=== PATIENT | male | born 1965 | race Caucasian/White ===

== ENCOUNTER 2021-10-01 06:28 | Emergency (ER) | payer MEDICAID, SELFPAY ==
--- NOTE | ~2021-10-01 | CT_ITS ---
EXAMINATION: CT ABDOMEN AND PELVIS WITH CONTRAST CLINICAL INFORMATION: Abdominal pain. History of pancreatic pseudocyst. COMPARISON: Abdominal MRI 02/02/[address] abdomen pelvis 10/03/2020 TECHNIQUE: Multidetector volumetric images were obtained from the superior aspect of the liver through the pubic symphysis following administration 85 mL of Omnipaque 350 intravenous contrast. Sagittal and coronal reformatted images were obtained on the technologist's workstation. This CT examination was performed using dose optimization techniques as appropriate, variously including the following: *Automated exposure control *Adjustment of mA and/or kV according to patient size (this includes techniques or standardized protocols for targeted exams where dose is matched to indication/reason for exam; i.e. extremities or head) *Use of iterative reconstruction technique DLP: 455 mGy-cm FINDINGS: Visualized lung bases demonstrate mild dependent atelectasis. The liver demonstrates normal size, contour and attenuation. The gallbladder is surgically absent. The common bile duct is dilated measuring up to 8 mm. Interval increase in size of now approximately 4 x 3.4 cm cystic lesion within the pancreatic head (previously 2.7 x 2.2 cm). The pancreatic body is unremarkable in appearance demonstrating relatively homogeneous enhancement. There is atrophy of the pancreatic tail. There is no definitive dilatation of the pancreatic duct. The spleen is normal in size. A medial splenule is noted. The adrenal glands are unremarkable. Symmetrically enhancing kidneys. There is a nonobstructing 5 mm calculus present within the lower pole the left kidney. There is no hydronephrosis of either kidney. There is a 1.4 cm cyst within the upper pole of the right kidney and a 3.6 cm cyst within the lower pole of the left kidney. Normal caliber loops of small and large bowel. Mild colonic diverticulosis without CT evidence to suggest active diverticulitis. Normal appendix. Normal caliber abdominal aorta demonstrating mild to moderate atherosclerotic disease. No retroperitoneal lymphadenopathy. The bladder is normal in appearance. The prostate gland is mildly enlarged. Small fat-containing bilateral inguinal hernias. No gross free pelvic fluid. No inguinal lymphadenopathy. Mild to moderate degenerative changes of the spine. Stable subcentimeter sclerotic focus within the right superior pubic ramus is nonspecific but most suggestive of a bone island. CT/CT abdomen pelvis w con IMPRESSION: 1. Interval increase in size of now approximately 4 cm cystic lesion within the pancreatic head (previously 2.7 cm). Clinical correlation recommended. 2. 5 mm nonobstructing left renal calculus. 3. Bilateral renal cysts. 4. Mild colonic diverticulosis. Fleischner guidelines were followed.
[2021-10-01 06:43] VITALS: BP 177/116; PULSE 76; RESP 16; TEMP 36.9; O2SAT 98; BMI 25.8
--- NOTE | 2021-10-01 06:44 | ED.ABDPAIN ---
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 He notes he thinks his pancreatitis was due to triglycerides but takes no medicines for it, then was told to cut down his drinking, and also had his GB removed. He cannot give me a straight answer for why he has pancreatitis. He notes that he takes tylenol at home when he has pain. He lives in [facility]. He ate a large heavy meal last night and is wondering if this is what caused his pain MD elicited complaint: abdominal pain Pertinent past history: other (pancreatitis) Onset (ago): day(s) (last night) Pain Consistency: constant Location: epigastric Severity: severe Quality: stabbing Radiation: none Migration to: no migration Exacerbating factors: eating and movement Relieving factors: nothing Context: history of similar episodes Associated symptoms: nausea Related Data Previous Rx's Medication Instructions Recorded morphine 15 mg immediate release 15 mg PO Q6H PRN 3 Days #15 tab 10/01/21 tablet ondansetron 4 mg disintegrating 4 mg PO Q8H PRN #20 tab 10/01/21 tablet Allergies Allergy/AdvReac Type Severity Reaction Status Date / Time Gadolinium-Containing Allergy Unknown Unknown Verified 10/01/21 06:53 Contrast Medi Review of Systems Review of Systems Constitutional : No Weight loss, No Fever, No Chills ENT/Mouth : No sore throat, No Rhinorrhea Eyes: No Swelling, No Redness Cardiovascular : No Chest Pain, No SOB, NoEdema Respiratory : No Cough, No Sputum, No Wheezing Gastrointestinal : Positive Nausea, no Vomiting, no Diarrhea, positive abdominal Pain, No Hematochezia, No Melena Genitourinary : No Dysuria, No Urinary Frequency, No Hematuria, No Urgency Musculoskeletal : No joint pain, No Myalgias, No Joint Swelling Skin : No Skin Lesions, No rash Neuro : No Weakness, No Numbness, No Dizziness, No Headache Psych : No Anxiety/Panic, No Depression Heme/Lymph: No Bruising, No Lymphadenopathy Endocrine : No Polyuria, No Polydipsia All other systems reviewed and are negative. [facility] Past Medical History Attestation statement: The following information was validated with the patient. Medical History HTN (hypertension) Pancreatic pseudocyst Pancreatitis Surgical History S/P cholecystectomy Social History Social History (Updated 10/01/21 @ 07:05 by Shelbi Loving DO) Alcohol intake: current Alcohol intake frequency: a few times a week Patient Tobacco Use Status: Never used Tobacco Use of substances other than those prescribed or required for medical reasons: No Advance Directives: No Advance Directives Information Provided: No Physical Exam ED Vital Signs: Vital Signs - 24 hr 10/01/21 06:43 10/01/21 07:33 Temperature 98.5 F 97.7 F Pulse Rate 76 66 Respiratory Rate 16 19 Blood Pressure 177/116 H 169/100 H Pulse Oximetry 98 97 BMI result Body Mass Index 25.8 Appearance: Alert. Oriented X3. No acute distress. Eyes: Pupils equal, round and reactive to light. ENT: Pharynx normal. Neck: Normal inspection. Neck supple. CVS: Normal heart rate and rhythm. Pulses normal. Respiratory: No respiratory distress. Breath sounds normal. Abdomen: Soft and moderate ttp in epigastric area but no rebound or guarding, moves well in bed. Skin: Skin warm and dry. Normal skin color. Normal skin turgor. Extremities: No lower extremity edema. No calf ttp Neuro: Oriented X 3. No motor deficit. No sensory deficit. Course Course Course Narrative: 2.7cm in August cyst - has appointment with GI no n/v can be managed as outpatient can follow up with his GI doctor patient states he wants to go home, asking for his IV out at this time wants to follow up with his doctor MDM - Abdominal Pain MDM Narrative Medical decision making narrative: 56 yo male with hx of HTN, pancreatitis, pseudocysts here with c/o abdominal pain after eating a large meal last night - abdomen is relatively benign on exam no rebound or guarding, he moves well on the bed. Will obtain labs, hydrate treat with IV morphine and reasses. He is not having vomiting at this time. Has appointment with GI in October. Dispo per results and improvement. Lab Data Result diagrams: 10/01/21 07:07 10/01/21 07:07 Labs: Lab Results 10/01/21 10/01/21 10/01/21 Range/Units 07:07 07:07 07:07 WBC 7.0 (4.8-10.8) X10*3/uL RBC 3.93 L (4.60-5.80) X10*6/uL Hgb 12.8 L (14.0-18.0) g/dl Hct 36.9 L (42.0-52.0) % MCV 93.9 (80.0-98.0) fL MCH 32.6 (27.0-33.0) pg MCHC 34.7 (31.0-36.0) g/dl RDW 11.2 (11.0-16.0) % Plt Count 216 (160-400) X10*3/uL MPV 9.9 (9.4-12.4) fL Immature Gran % (Auto) 0.4 (0.0-0.4) % Neut % (Auto) 67.9 (45-73) % Lymph % (Auto) 17.9 L (20-40) % [place] % (Auto) 10.5 (2-11) % Eos % (Auto) 2.7 (0-4) % Baso % (Auto) 0.6 (0-2) % Lymph # (Auto) 1.3 (1.2-4.9) X10*3/uL [place] # (Auto) 0.7 (0.1-1.2) X10*3/uL Eos # (Auto) 0.2 (0.0-0.4) X10*3/uL Baso # (Auto) 0.0 (0.0-0.2) X10*3/uL Abs Immat Gran (auto) 0.03 (0.00-0.03) X10*3/uL Absolute Neuts (auto) 4.7 (2.0-8.3) x10*3/uL Absolute Nucleated RBC 0.000 (0.0-0.012) X10*3/uL Nucleated RBC % (auto) 0.0 (0.0-0.2) /100WBC Sodium 137 (135-145) mmol/L Potassium 4.5 (3.3-5.1) mmol/L Chloride 103 (96-108) mmol/L Carbon Dioxide 23 (22-29) mmol/L Anion Gap 16 (12-20) BUN 33 H (9-16) mg/dL Creatinine 1.17 (0.5-1.4) mg/dL Estim Creat Clear Calc 66.6 Estimated GFR > 60 Random Glucose 162 H (60-115) mg/dL Calcium 9.2 (8.4-10.2) mg/dL Magnesium 1.7 (1.6-2.6) mg/dL Total Bilirubin 0.5 (0.0-1.0) mg/dL Direct Bilirubin 0.2 (0.0-0.5) mg/dL AST 19 (5-37) U/L ALT 20 (0-40) U/L Alkaline Phosphatase 58 (39-117) U/L Lactate Dehydrogenase 228 (118-273) U/L Total Protein 6.9 (6.5-8.0) g/dL Albumin 4.3 (3.5-5.0) g/dL Amylase 123 H (28-100) U/L Lipase 309 H (8-78) U/L Ethyl Alcohol < 10 mg/dL Discharge Plan Discharge Clinical Impression: Pancreatic pseudocyst/cyst Abdominal pain Qualifiers: Abdominal location: epigastric Qualified Code(s): R10.13 - Epigastric pain Acute pancreatitis Qualifiers: Pancreatitis type: unspecified pancreatitis type Acute pancreatitis complication: no infection or necrosis Qualified Code(s): K85.90 - Acute pancreatitis without necrosis or infection, unspecified Patient Disposition: Home, Self-Care Instructions: Pancreatitis (ED), Abdominal Pain (ED), Pancreatic Pseudocyst (DC) Additional Instructions: return to ED for any worsening symptoms or concerns CALL YOUR GI DOCTOR TODAY OR TOMORROW CT/CT abdomen pelvis w con IMPRESSION: 1.? Interval increase in size of now approximately 4 cm cystic lesion within the pancreatic head (previously 2.7 cm). Clinical correlation recommended. 2.? 5 mm nonobstructing left renal calculus. 3.? Bilateral renal cysts. 4.? Mild colonic diverticulosis.? ? Fleischner guidelines were followed. Prescriptions: New morphine 15 mg tablet 15 mg PO Q6H PRN (Reason: pain) 3 Days Qty: 15 0RF ondansetron 4 mg tablet,disintegrating 4 mg PO Q8H PRN (Reason: nausea and vomiting) Qty: 20 0RF Stand Alone Forms: Work/School Release
--- NOTE | 2021-10-01 06:52 | PC.NURSE ---
Report given to Betsy
[2021-10-01] MEDS: 0.9 % Sodium Chloride 1,000 ML 999 ML IVCONT (07:09)
[2021-10-01] MEDS: Morphine Sulfate 10 MG/ML CARTRIDGE 6 MG IVPUSH (07:10)
[2021-10-01] MEDS: ondansetron HCL 4 MG/2 ML VIAL IVPUSH (07:10)
[2021-10-01 07:20] LABS: MANUAL DIFF FLAG NO
--- NOTE | 2021-10-01 07:20 | PC.NURSE ---
Patient arrives complaining of worsening upper abdominal pain. Reports history of pancreatitis and is concerned of a flare up. Patient is alert and oriented. Respirations regular and even. Skin PWD. Denies nausea/vomiting/diarrhea at this time. IV established and labs drawn. Patient medicated with Zofran and Morphine, hung NS 1L. Patient reports improvement with the Morphine. Awaiting labs at this time
[2021-10-01 07:25] LABS: Basophils Percent Auto 0.6 % (0-2); Eosinophils Absolute Auto 0.2 X10*3/uL (0.0-0.4); Eosinophils Percent Auto 2.7 % (0-4); Hematocrit 36.9 % (42.0-52.0); Hemoglobin 12.8 g/dl (14.0-18.0); Imm Gran Abs Auto 0.03 X10*3/uL (0.00-0.03); Imm Gran Pct Auto 0.4 % (0.0-0.4); Lymphocytes Absolute Auto 1.3 X10*3/uL (1.2-4.9); Lymphocytes Percent Auto 17.9 % (20-40); Mean Corpuscular HGB Conc 34.7 g/dl (31.0-36.0); Mean Corpuscular Hemoglobin 32.6 pg (27.0-33.0); Mean Corpuscular Volume 93.9 fL (80.0-98.0); Mean Platelet Volume 9.9 fL (9.4-12.4); Monocytes Absolute Auto 0.7 X10*3/uL (0.1-1.2); Monocytes Percent Auto 10.5 % (2-11); Neutrophils Absolute Auto 4.7 x10*3/uL (2.0-8.3); Neutrophils Percent Auto 67.9 % (45-73); Platelet Count 216 X10*3/uL (160-400); Red Blood Count 3.93 X10*6/uL (4.60-5.80); Red Cell Distribution Width 11.2 % (11.0-16.0)
[2021-10-01 07:33] VITALS: BP 169/100; PULSE 66; RESP 19; TEMP 36.5; O2SAT 97
[2021-10-01 07:40] LABS: Ethanol < 10 mg/dL
[2021-10-01 07:44] LABS: Alanine Aminotransferase 20 U/L (0-40); Albumin Level 4.3 g/dL (3.5-5.0); Alkaline Phosphatase 58 U/L (39-117); Amylase 123 U/L (28-100); Anion Gap 16 (12-20); Aspartate Amino Transferase 19 U/L (5-37); Bilirubin Direct 0.2 mg/dL (0.0-0.5); Bilirubin Total 0.5 mg/dL (0.0-1.0); Blood Urea Nitrogen 33 mg/dL (9-16); Calcium 9.2 mg/dL (8.4-10.2); Carbon Dioxide 23 mmol/L (22-29); Chloride 103 mmol/L (96-108); Creatinine Clr Calc Pharmacy 66.6; Estimated Glomerular Filt Rate > 60; Glucose Random 162 mg/dL (60-115); Lactate Dehydrogenase 228 U/L (118-273); Lipase 309 U/L (8-78); Magnesium 1.7 mg/dL (1.6-2.6); Potassium 4.5 mmol/L (3.3-5.1); Sodium 137 mmol/L (135-145); Total Protein 6.9 g/dL (6.5-8.0)
[2021-10-01] MEDS: iohexoL 350 MG/ML 100 ML INFUS..BTL IV (08:29)
[2021-10-01 09:19] VITALS: BP 180/108; PULSE 71; RESP 17; O2SAT 99
== END 2021-10-01 09:33 | disposition home or self-care (01) ==
PROVIDERS: Emergency Provider Emergency Medicine
DX: K85.90 Acute pancreatitis without necrosis or infection, unspecified (principal); K86.3 Pseudocyst of pancreas; I10 Essential (primary) hypertension
CPT/HCPCS: 36415; 74177; 80048; 80076; 82077; 82150; 83615; 83690; 83735; 85025; 96361; 96374; 96375; 99284; J2270; J2405; Q9967

== ENCOUNTER 2021-10-17 05:32 | Emergency (ER) | payer MEDICAID, SELFPAY ==
[2021-10-17 05:42] VITALS: BP 175/115; PULSE 83; RESP 16; TEMP 36.8; O2SAT 98; BMI 25.8
[2021-10-17 05:55] LABS: MANUAL DIFF FLAG NO
[2021-10-17 05:56] LABS: Basophils Percent Auto 0.4 % (0-2); Eosinophils Absolute Auto 0.3 X10*3/uL (0.0-0.4); Eosinophils Percent Auto 3.2 % (0-4); Hematocrit 38.8 % (42.0-52.0); Imm Gran Abs Auto 0.04 X10*3/uL (0.00-0.03); Imm Gran Pct Auto 0.5 % (0.0-0.4); Lymphocytes Absolute Auto 1.9 X10*3/uL (1.2-4.9); Lymphocytes Percent Auto 22.1 % (20-40); Mean Corpuscular HGB Conc 33.5 g/dl (31.0-36.0); Mean Corpuscular Hemoglobin 31.6 pg (27.0-33.0); Mean Corpuscular Volume 94.2 fL (80.0-98.0); Mean Platelet Volume 9.8 fL (9.4-12.4); Monocytes Absolute Auto 0.9 X10*3/uL (0.1-1.2); Neutrophils Absolute Auto 5.4 x10*3/uL (2.0-8.3); Neutrophils Percent Auto 62.8 % (45-73); Platelet Count 215 X10*3/uL (160-400); Red Blood Count 4.12 X10*6/uL (4.60-5.80); Red Cell Distribution Width 11.8 % (11.0-16.0); White Blood Count 8.6 X10*3/uL (4.8-10.8)
[2021-10-17 06:16] LABS: Appearance Urine CLEAR; Color Urine YELLOW; Glucose Urine UA NEG (NEG); Leukocyte Esterase Urine NEG (NEG); Nitrite Urine NEG (NEG); PH 5.5 (5.0-8.0); Specific Gravity - Urine >= 1.030 (1.005-1.025); UACC Culture Trigger NO; Urine Blood NEG (NEG); Urine Ketones NEG (NEG); Urine Protein 2+ MG/DL (NEG-TRACE)
[2021-10-17 06:17] LABS: Ethanol < 10 mg/dL
[2021-10-17 06:24] LABS: Calcium Phosphate Crystals Ur TRACE /LPF; Hyaline Casts Urine 0-2 /LPF; Mucus Urine TRACE /LPF; RBC Urine 0 /HPF (0); Squamous Epithelial Cell Urine TRACE /LPF; WBC Urine 0-2 /HPF (0-4)
[2021-10-17 06:35] LABS: Alanine Aminotransferase 18 U/L (0-40); Albumin Level 4.5 g/dL (3.5-5.0); Alkaline Phosphatase 55 U/L (39-117); Anion Gap 16 (12-20); Aspartate Amino Transferase 18 U/L (5-37); Bilirubin Total 0.5 mg/dL (0.0-1.0); Blood Urea Nitrogen 31 mg/dL (9-16); Calcium 9.7 mg/dL (8.4-10.2); Carbon Dioxide 21 mmol/L (22-29); Chloride 105 mmol/L (96-108); Creatinine Clr Calc Pharmacy 82.1; Estimated Glomerular Filt Rate > 60; Glucose Random 157 mg/dL (60-115); Potassium 5.1 mmol/L (3.3-5.1); Sodium 137 mmol/L (135-145); Total Protein 7.4 g/dL (6.5-8.0)
--- NOTE | 2021-10-17 06:36 | ED_ITS ---
HPI - Abdominal Pain General Chief Complaint: Abdominal Pain Stated Complaint: abd pain Time Seen by Provider: 10/17/21 06:34 Source: patient and old records reviewed Mode of arrival: ambulatory Limitations: no limitations History of Present Illness HPI narrative: just seen 10/01 in our ED Rx morphine for home 10/14 at [facility] pancreatic pseudocyst was removed stated he did well not sent home with medications no n/v/d or fevers then developed pain last night MD elicited complaint: abdominal pain Pertinent past history: other (pancreatitis) Onset (ago): day(s) (yesterday ) Pain Consistency: constant Location: epigastric Severity: moderate Quality: stabbing Radiation: none Migration to: no migration Exacerbating factors: nothing Relieving factors: nothing Context: history of similar episodes Associated symptoms: denies other symptoms Related Data Previous Rx's Medication Instructions Recorded morphine 15 mg immediate release 15 mg PO Q6H PRN 3 Days #15 tab 10/01/21 tablet ondansetron 4 mg disintegrating 4 mg PO Q8H PRN #20 tab 10/01/21 tablet Allergies Allergy/AdvReac Type Severity Reaction Status Date / Time Gadolinium-Containing Allergy Unknown Unknown Verified 10/01/21 06:53 Contrast Medi Review of Systems Review of Systems Constitutional : No Weight loss, No Fever, No Chills ENT/Mouth : No sore throat, No Rhinorrhea Eyes: No Swelling, No Redness Cardiovascular : No Chest Pain, No SOB, NoEdema Respiratory : No Cough, No Sputum, No Wheezing Gastrointestinal : no Nausea, no Vomiting, no Diarrhea, positive abdominal Pain, No Hematochezia, No Melena Genitourinary : No Dysuria, No Urinary Frequency, No Hematuria, No Urgency Musculoskeletal : No joint pain, No Myalgias, No Joint Swelling Skin : No Skin Lesions, No rash Neuro : No Weakness, No Numbness, No Dizziness, No Headache Psych : No Anxiety/Panic, No Depression Heme/Lymph: No Bruising, No Lymphadenopathy Endocrine : No Polyuria, No Polydipsia All other systems reviewed and are negative. [facility] Past Medical History Attestation statement: The following information was validated with the patient. Medical History HTN (hypertension) Pancreatic pseudocyst Pancreatitis Surgical History S/P cholecystectomy Social History Social History Alcohol intake: current Alcohol intake frequency: a few times a week Patient Tobacco Use Status: Never used Tobacco Advance Directives: No Physical Exam ED Vital Signs: Vital Signs - 24 hr 10/17/21 05:42 10/17/21 07:27 Temperature 98.3 F Pulse Rate 83 86 Respiratory Rate 16 14 Blood Pressure 175/115 H 202/126 H Pulse Oximetry 98 96 BMI result Body Mass Index 25.8 Appearance: Alert. Oriented X3. No acute distress. Eyes: Pupils equal, round and reactive to light. ENT: Pharynx normal. Neck: Normal inspection. Neck supple. CVS: Normal heart rate and rhythm. Pulses normal. Respiratory: No respiratory distress. Breath sounds normal. Abdomen: Soft and nontender. Does not grimace to palpation Skin: Skin warm and dry. Normal skin color. Normal skin turgor. Extremities: No lower extremity edema. No calf ttp Neuro: Oriented X 3. No motor deficit. No sensory deficit. Course Course Course Narrative: lipase level elevated - CT scan to evaluate ordered patient eloped MDM - Abdominal Pain MDM Narrative Medical decision making narrative: 56 yo male with hx of HTN and chronic pancreatitis states he just had cyst re moved on 10/14 at [facility] - now has abdominal pain but no n/v/d no fevers normal BMs at this time oral medications for pain ordered as abdominal exam is benign and he is not vomiting. labs and lipase level ordered. Lab Data Result diagrams: 10/17/21 05:50 10/17/21 05:50 Labs: Lab Results 10/17/21 10/17/21 10/17/21 Range/Units 05:50 05:50 05:50 WBC 8.6 (4.8-10.8) X10*3/uL RBC 4.12 L (4.60-5.80) X10*6/uL Hgb 13.0 L (14.0-18.0) g/dl Hct 38.8 L (42.0-52.0) % MCV 94.2 (80.0-98.0) fL MCH 31.6 (27.0-33.0) pg MCHC 33.5 (31.0-36.0) g/dl RDW 11.8 (11.0-16.0) % Plt Count 215 (160-400) X10*3/uL MPV 9.8 (9.4-12.4) fL Immature Gran % (Auto) 0.5 H (0.0-0.4) % Neut % (Auto) 62.8 (45-73) % Lymph % (Auto) 22.1 (20-40) % [place] % (Auto) 11.0 (2-11) % Eos % (Auto) 3.2 (0-4) % Baso % (Auto) 0.4 (0-2) % Lymph # (Auto) 1.9 (1.2-4.9) X10*3/uL [place] # (Auto) 0.9 (0.1-1.2) X10*3/uL Eos # (Auto) 0.3 (0.0-0.4) X10*3/uL Baso # (Auto) 0.0 (0.0-0.2) X10*3/uL Abs Immat Gran (auto) 0.04 H (0.00-0.03) X10*3/uL Absolute Neuts (auto) 5.4 (2.0-8.3) x10*3/uL Absolute Nucleated RBC 0.000 (0.0-0.012) X10*3/uL Nucleated RBC % (auto) 0.0 (0.0-0.2) /100WBC Sodium 137 (135-145) mmol/L Potassium 5.1 (3.3-5.1) mmol/L Chloride 105 (96-108) mmol/L Carbon Dioxide 21 L (22-29) mmol/L Anion Gap 16 (12-20) BUN 31 H (9-16) mg/dL Creatinine 0.95 (0.5-1.4) mg/dL Estim Creat Clear Calc 82.1 Estimated GFR > 60 Random Glucose 157 H (60-115) mg/dL Calcium 9.7 (8.4-10.2) mg/dL Total Bilirubin 0.5 (0.0-1.0) mg/dL AST 18 (5-37) U/L ALT 18 (0-40) U/L Alkaline Phosphatase 55 (39-117) U/L Total Protein 7.4 (6.5-8.0) g/dL Albumin 4.5 (3.5-5.0) g/dL Lipase 1699 H (8-78) U/L Urine Color Urine Appearance Urine pH (5.0-8.0) Ur Specific [place] (1.005-1.025) Urine Protein (NEG-TRACE) MG/DL Urine Glucose (UA) (NEG) MG/DL Urine Ketones (NEG) MG/DL Urine Blood (NEG) Urine Nitrite (NEG) Ur Leukocyte Esterase (NEG) Urine RBC (0) /HPF Urine WBC (0-4) /HPF Ur Squamous Epith Cells /LPF Calcium Phosphate Cryst /LPF Urine Bacteria /LPF Hyaline Casts /LPF Urine Mucus /LPF Ethyl Alcohol < 10 mg/dL 10/17/21 Range/Units 05:50 WBC (4.8-10.8) X10*3/uL RBC (4.60-5.80) X10*6/uL Hgb (14.0-18.0) g/dl Hct (42.0-52.0) % MCV (80.0-98.0) fL MCH (27.0-33.0) pg MCHC (31.0-36.0) g/dl RDW (11.0-16.0) % Plt Count (160-400) X10*3/uL MPV (9.4-12.4) fL Immature Gran % (Auto) (0.0-0.4) % Neut % (Auto) (45-73) % Lymph % (Auto) (20-40) % [place] % (Auto) (2-11) % Eos % (Auto) (0-4) % Baso % (Auto) (0-2) % Lymph # (Auto) (1.2-4.9) X10*3/uL [place] # (Auto) (0.1-1.2) X10*3/uL Eos # (Auto) (0.0-0.4) X10*3/uL Baso # (Auto) (0.0-0.2) X10*3/uL Abs Immat Gran (auto) (0.00-0.03) X10*3/uL Absolute Neuts (auto) (2.0-8.3) x10*3/uL Absolute Nucleated RBC (0.0-0.012) X10*3/uL Nucleated RBC % (auto) (0.0-0.2) /100WBC Sodium (135-145) mmol/L Potassium (3.3-5.1) mmol/L Chloride (96-108) mmol/L Carbon Dioxide (22-29) mmol/L Anion Gap (12-20) BUN (9-16) mg/dL Creatinine (0.5-1.4) mg/dL Estim Creat Clear Calc Estimated GFR Random Glucose (60-115) mg/dL Calcium (8.4-10.2) mg/dL Total Bilirubin (0.0-1.0) mg/dL AST (5-37) U/L ALT (0-40) U/L Alkaline Phosphatase (39-117) U/L Total Protein (6.5-8.0) g/dL Albumin (3.5-5.0) g/dL Lipase (8-78) U/L Urine Color YELLOW Urine Appearance CLEAR Urine pH 5.5 (5.0-8.0) Ur Specific [place] >= 1.030 H (1.005-1.025) Urine Protein 2+ H (NEG-TRACE) MG/DL Urine Glucose (UA) NEG (NEG) MG/DL Urine Ketones NEG (NEG) MG/DL Urine Blood NEG (NEG) Urine Nitrite NEG (NEG) Ur Leukocyte Esterase NEG (NEG) Urine RBC 0 (0) /HPF Urine WBC 0-2 (0-4) /HPF Ur Squamous Epith Cells TRACE /LPF Calcium Phosphate Cryst TRACE /LPF Urine Bacteria NONE /LPF Hyaline Casts 0-2 /LPF Urine Mucus TRACE /LPF Ethyl Alcohol mg/dL Discharge Plan Discharge Clinical Impression: Pancreatitis, Abdominal pain Patient Disposition: Elopement Prescriptions: No Action morphine 15 mg tablet 15 mg PO Q6H PRN (Reason: pain) 3 Days Qty: 15 0RF ondansetron 4 mg tablet,disintegrating 4 mg PO Q8H PRN (Reason: nausea and vomiting) Qty: 20 0RF Discharge Date/Time: 10/17/21 08:18
[2021-10-17 06:46] LABS: Lipase 1699 U/L (8-78)
--- NOTE | 2021-10-17 06:57 | PC.NURSE ---
Report given to JACKI Schroeder
[2021-10-17 07:27] VITALS: BP 202/126; PULSE 86; RESP 14; O2SAT 96
[2021-10-17] MEDS: Ondansetron ODT 4 MG TAB.RAPDIS TRANSLINGU (07:31)
[2021-10-17] MEDS: Morphine Sulfate Immed Release 15 MG TABLET PO (07:31)
--- NOTE | 2021-10-17 07:35 | PC.NURSE ---
PT MEDICATED FOR PAIN, REFUSING CT SCAN. REVIEWED LIPASE RESULTS. HE REMAINS HYPERTENSIVE AND STATES HE TAKES AM MEDS. HE IS DECLINING TO PUT HOSPITAL ATTIRE ON. PT DOES NOT HAVE IV ACCESS. HE IS REQUESTING TO SEE THE MD. DR CHANCE AWARE.
== END 2021-10-17 09:12 | disposition left against medical advice (07) ==
PROVIDERS: Emergency Provider Emergency Medicine
DX: K85.90 Acute pancreatitis without necrosis or infection, unspecified (principal); K86.1 Other chronic pancreatitis; I10 Essential (primary) hypertension; Z98.890 Other specified postprocedural states
CPT/HCPCS: 36415; 80053; 81001; 81003; 82077; 83690; 85025; 99283